=== PATIENT | female | born 1960 | race Caucasian/White ===

== ENCOUNTER → 2016-07-14 | Outpatient (CLI) | payer MEDICARE, OTHER ==
--- NOTE | 2016-07-14 11:51 | US ---
EXAMINATION TYPE: US thyroid st tissue head/neck DATE OF EXAM: 07/14/2016 10:42 AM COMPARISON: Thyroid ultrasound January 06, 2016 CLINICAL HISTORY: E04.2 Goiter. Follow up exam GLAND SIZE: Right Lobe: 4.3 x 1.4 x 1.2 cm Overall Parenchyma: homogenous Left Lobe: 4.6 x 1.2 x 1.4 cm Overall Parenchyma: heterogeneous Isthmus Thickness: 0.5 cm NODULES RIGHT: # of nodules measured on right: 0 LEFT: # of nodules measured on left: 3 1. 1.1 X 0.9 x 0.7 cm hypoechoic mixed nodule at the mid pole with irregular margins. This nodule is wider than tall and shows no intranodular vascularity. Prior size: 0.8 x 0.8 x 0.6 cm 2. 0.9 X 0.7 x 0.6 cm hyperechoic solid nodule at the lower pole with well-defined margins. This no dule is wider than tall and shows no intranodular vascularity. Prior size: 1.1 x 1.1 x 0.5 cm 3. 0.4 X 0.3 x 0.3 cm hypoechoic solid nodule at the upper pole with poorly defined margins. This n odule is wider than tall and shows no intranodular vascularity. Prior size: 0.5 x 0.5 x 0.5 cm ISTHMUS: # of nodules measured in the isthmus: 0 Bilateral neck scanned, no evidence of lymphadenopathy. Thyroid scan remains normal in size with small nodules in left thyroid lobe grossly stable in size an d appearance versus prior exam . No worrisome new solid or cystic nodules are seen. IMPRESSION: Thyroid gland remains normal in size with stable left-sided nodules, no new greater than 1 cm solid o r cystic nodules are evident.
== END | disposition home or self-care (01) ==
LOC: RADUSWWP 10:26
PROVIDERS: ATTEND Family Medicine
DX: E04.2 Nontoxic multinodular goiter (principal)
CPT/HCPCS: 76536

== ENCOUNTER → 2016-08-28 | Outpatient (CLI) | payer MEDICARE, OTHER ==
--- NOTE | 2016-09-01 13:29 | MM ---
Reason for exam: screening (asymptomatic). Last mammogram was performed 1 year ago. History: Patient is postmenopausal. Took hormonal contraceptives for 5 years beginning at age 15. Physical Findings: A clinical breast exam by your physician is recommended on an annual basis and results should be correlated with mammographic findings. MG 3D Screening Mammo W/Cad Bilateral CC and MLO view(s) were taken. Prior study comparison: August 14, 2015, bilateral MG screening mammo w CAD. May 22, 2013, bilateral digital screening mammo w/CAD. May 23, 2012, bilateral digital screening mammo w/CAD. There are scattered fibroglandular densities. There is chronic nodularity in the left breast. There is no discrete abnormality. ASSESSMENT: Negative, BI-RAD 1 RECOMMENDATION: Routine screening mammogram of both breasts in 1 year. Manage patient on a clinical basis with regard to left breast pain.
== END | disposition home or self-care (01) ==
LOC: RADMAMWWP 09:11
PROVIDERS: ATTEND Family Medicine
DX: Z12.31 Encounter for screening mammogram for malignant neoplasm of breast (principal)
CPT/HCPCS: 77063; G0202

== ENCOUNTER → 2016-10-14 | Outpatient (CLI) | payer MEDICARE ==
[2016-10-14 19:46] LABS: Appearance,CSF Clear
[2016-10-16 12:42] LABS: Immunoglobulin G 805 mg/dL (700 - 1600)
== END | disposition home or self-care (01) ==
LOC: LABWHC1 08:59
PROVIDERS: ATTEND Psychiatry & Neurology Pain Medicine
DX: R90.82 White matter disease, unspecified (principal)
CPT/HCPCS: 36415; 82040; 82042; 82784; 83873; 83916; 84157; 87476; 88108; 89050

== ENCOUNTER → 2016-12-01 | Outpatient (CLI) | payer MEDICARE ==
--- NOTE | 2016-12-02 07:17 | NM ---
EXAMINATION TYPE: NM parathyroid w/spect DATE OF EXAM: 12/01/2016 COMPARISON: Thyroid ultrasound dated 07/14/2016. HISTORY: Abnormal labs TECHNIQUE: Following administration of 27.1 mCi Tc99m Sestamibi. Anterior projection images of the neck and ches t were obtained 10 minutes and 3 hours post injection. SPECT images of the neck and chest were obtai shasha and reconstructed in three axes. FINDINGS: Thyroid tracer washout: Delayed images demonstrate near-complete tracer washout from the thyroid. Parathyroid uptake: None. The two-hour delayed images do not demonstrate any focal abnormal persisten t uptake in the region of the parathyroid glands to suggest parathyroid adenoma. Normal uptake: There is physiological tracer uptake in the myocardium, liver, salivary glands, and th yroid gland. IMPRESSION: Normal parathyroid imaging study. No evidence for abnormal uptake to suggest mediastinal parathyroid adenoma.
== END ==
LOC: RADNMMAIN 11:27
PROVIDERS: ATTEND Family Medicine
DX: R89.9 Unspecified abnormal finding in specimens from other organs, systems and tissues (principal)
CPT/HCPCS: 78071; A9500

== ENCOUNTER → 2016-12-10 | Outpatient (CLI) | payer MEDICARE ==
--- NOTE | 2016-12-10 09:59 | US ---
EXAMINATION TYPE: US thyroid st tissue head/neck DATE OF EXAM: 12/10/2016 COMPARISON: 07/14/2016 CLINICAL HISTORY: E04.2 Goiter/head/neck. Follow up thyroid nodules GLAND SIZE: Right Lobe: 4.7 x 1.1 x 1.9 cm Overall Parenchyma: homogenous Left Lobe: 4.5 x 1.2 x 1.8 cm Overall Parenchyma: heterogeneous Isthmus Thickness: 0.3 cm NODULES RIGHT: # of nodules measured on right: 0 LEFT: # of nodules measured on left: 3 1. 1.0 X 0.7 x 0.8 cm hypoechoic mixed nodule at the mid pole with irregular margins; . This nodul e is wider than tall and shows intranodular vascularity. Prior size: 1.1 x 0.9 x 0.7 cm 2. 1.1 X 0.7 x 0.9 cm hyperechoic solid nodule at the lower pole with well-defined margins; . This nodule is wider than tall and shows no intranodular vascularity. Prior size: 0.9 x 0.7 x 0.6 cm 3. 0.4 X 0.3 x 0.4 cm hypoechoic solid nodule at the upper pole with poorly defined margins; . This nodule is wider than tall and shows no intranodular vascularity. Prior size: 0.4 x 0.3 x 0.3 cm ISTHMUS: # of nodules measured in the isthmus: 0 Bilateral neck scanned, no evidence of lymphadenopathy. Left thyroid nodules noted with little change from prior exam IMPRESSION: Bilateral nonspecific thyroid nodularity. The need to biopsy should be made on a clinical basis.
== END | disposition home or self-care (01) ==
LOC: RADUSWWP 08:24
PROVIDERS: ATTEND Family Medicine
DX: E04.2 Nontoxic multinodular goiter (principal)
CPT/HCPCS: 76536

== ENCOUNTER → 2017-07-08 | Outpatient (CLI) | payer MEDICARE ==
--- NOTE | 2017-07-08 11:31 | US ---
EXAMINATION TYPE: US thyroid st tissue head/neck DATE OF EXAM: 07/08/2017 COMPARISON: NONE CLINICAL HISTORY: 56-year-old female E04.2 Nontoxic multinodular goiter. Follow up thyroid nodules Technique: Multiple sonographic images of the thyroid gland are obtained. FINDINGS: GLAND SIZE: Right Lobe: 5.0 x 1.3 x 2.1 cm Overall Parenchyma: homogenous Left Lobe: 4.8 x 1.1 x 1.8 cm Overall Parenchyma: heterogeneous Isthmus Thickness: 0.2 cm NODULES RIGHT: # of nodules measured on right: 0 LEFT: # of nodules measured on left: 3 1. 0.9 X 0.5 x 0.8 cm mixed nodule at the mid pole. This nodule is wider than tall and shows intran odular vascularity. Prior size: 1.0 x 0.7 x 0.8 cm 2. 1.4 X 0.7 x 1.2 cm hyperechoic solid nodule at the lower pole with well-defined margins; . This nodule is wider than tall and shows intranodular vascularity. Increased in size. Prior size: 1.1 x 0.7 x 0.9 cm 3. 0.4 X 0.2 x 0.4 cm tiny solid nodule at the upper pole. This nodule is wider than tall and shows intranodular vascularity. Prior size: 0.4 x 0.3 x 0.4 cm ISTHMUS: # of nodules measured in the isthmus: Bilateral neck scanned, no evidence of lymphadenopathy. Process Eng notes: 3 nodules measured left thyroid lobe as on prior exam IMPRESSION: 1. Redemonstrated 3 nodules on the left. The largest measures 1.4 x 1.2 cm and is solid at the lower pole. This has increased in size from 12/10/2016, previously measuring 1.1 x 0.9 cm. Follow-up versus F NA. 2. The other 2 nodules are stable measuring up to 9 mm.
== END | disposition home or self-care (01) ==
LOC: RADUSWWP 08:21
PROVIDERS: ATTEND Family Medicine
DX: E04.2 Nontoxic multinodular goiter (principal)
CPT/HCPCS: 76536

== ENCOUNTER → 2018-03-02 | Outpatient (CLI) | payer MEDICARE ==
--- NOTE | 2018-03-02 09:21 | US ---
EXAMINATION TYPE: US thyroid st tissue head/neck DATE OF EXAM: 03/02/2018 COMPARISON: US 07/08/2017 CLINICAL HISTORY: E04.1 Thyroid Nodule. F/U nodules GLAND SIZE: Right Lobe: 5.0 x 1.3 x 1.5 cm Overall Parenchyma: homogenous Left Lobe: 4.6 x 1.2 x 1.3 cm Overall Parenchyma: heterogeneous Isthmus Thickness: 0.3 cm NODULES RIGHT: # of nodules measured on right: 0 LEFT: # of nodules measured on left: 3 1. 0.9 X 0.6 x 0.8 cm hypoechoic mixed nodule at the mid pole with well-defined margins; This nodu le is wider than tall and shows intranodular vascularity. Prior size: 0.9 x 0.5 x 0.8 cm 2. 1.2 X 0.7 x 1.2 cm echogenic solid nodule at the lower pole with well-defined margins; This nodu le is wider than tall and shows intranodular vascularity. Prior size: 1.4 x 0.7 x 1.2 cm 3. 0.5 X 0.4 x 0.4 cm hypoechoic solid nodule at the upper pole with well-defined margins; This nod ule is wider than tall and shows intranodular vascularity. Prior size: 0.4 x 0.2 x 0.4 cm ISTHMUS: # of nodules measured in the isthmus: 0 Bilateral neck scanned, no evidence of lymphadenopathy. Stable nodules on left. IMPRESSION: Nonspecific thyroid nodularity.
--- NOTE | 2018-03-03 14:21 | MM ---
Reason for exam: screening (asymptomatic). Last mammogram was performed 1 year and 6 months ago. History: Patient is postmenopausal. Took hormonal contraceptives for 5 years beginning at age 15. Physical Findings: A clinical breast exam by your physician is recommended on an annual basis and results should be correlated with mammographic findings. MG 3D Screening Mammo W/Cad Bilateral CC and MLO view(s) were taken. Prior study comparison: August 28, 2016, bilateral MG 3d screening mammo w/cad. August 14, 2015, bilateral MG screening mammo w CAD. The breast tissue is heterogeneously dense. This may lower the sensitivity of mammography. Finding: There are typically benign round calcifications in the inner quadrant, posterior position of the left breast. There is a chronic nodularity in the left breast. There is no discrete abnormality. ASSESSMENT: Benign, BI-RAD 2 RECOMMENDATION: Routine screening mammogram of both breasts in 1 year.
== END | disposition home or self-care (01) ==
LOC: RADUSWWP 08:52
PROVIDERS: ATTEND Family Medicine
DX: Z12.31 Encounter for screening mammogram for malignant neoplasm of breast (principal); E04.2 Nontoxic multinodular goiter
CPT/HCPCS: 76536; 77063; 77067

== ENCOUNTER → 2019-10-30 | Outpatient (CLI) | payer MEDICARE ==
--- NOTE | 2019-10-30 15:14 | US ---
EXAMINATION TYPE: US thyroid st tissue head/neck DATE OF EXAM: 10/30/2019 COMPARISON: Last US 03/02 20 CLINICAL HISTORY: E04.2 Goiter. GLAND SIZE: Right Lobe: 4.8 x 1.3 x 1.3 cm Overall Parenchyma: heterogenous Left Lobe: 4.8 x 1.3 x 1.2 cm Overall Parenchyma: heterogeneous Isthmus Thickness: 0.3 cm NODULES RIGHT: # of nodules measured on right: 0 LEFT: # of nodules measured on left: 3 1. 0.9 X 0.5 x 0.4 cm hypoechoic solid nodule at the mid pole with well-defined margins. This nodu le is wider than tall and shows no intranodular vascularity. Prior size: 0.9 x 0.6 x 0.8 cm 2. 1.7 X 0.9 x 0.7 cm echogenic solid nodule at the lower pole with well-defined margin. This nodul e is wider than tall and shows no intranodular vascularity. Prior size: 1.2 x 0.7 x 1.2 cm 3. 0.4 X 0.4 x 0.3 cm hypoechoic solid nodule at the upper pole with well-defined margins This nodul e is wider than tall and shows no intranodular vascularity. Prior size: 0.5 x 0.4 x 0.4 cm ISTHMUS: # of nodules measured in the isthmus: 0 Bilateral neck scanned, no evidence of lymphadenopathy. IMPRESSION: 1. Left thyroid lobe nodule with additional subcentimeter nodules.
--- NOTE | 2019-10-31 08:15 | US ---
LOWER EXTREMITY VENOUS INSUFFICIENCY CLINICAL HISTORY: I87.2 Venous insufficiency (chronic) (peripheral). SIDE PERFORMED: Bilateral 1) Color flow is present and patency is documented in the following vessels. No DVT or SVT is noted . EIV Common Femoral Vein Deep Femoral Vein Femoral Vein Popliteal Vein Proximal Calf Veins Greater Saph Vein Upper Small Saph Vein 2) There is venous reflux noted at the following venous levels: No 3) Incompetent perforators are noted at these levels: No No venous insufficiency noted IMPRESSION: No evidence for venous insufficiency or DVT.
== END | disposition home or self-care (01) ==
LOC: RADUSWWP 13:28
PROVIDERS: ATTEND Family Medicine
DX: E04.2 Nontoxic multinodular goiter (principal); I87.2 Venous insufficiency (chronic) (peripheral)
CPT/HCPCS: 76536; 93970

== ENCOUNTER → 2020-04-24 | Outpatient (CLI) | payer MEDICARE ==
--- NOTE | 2020-04-24 15:35 | CTL ---
EXAMINATION TYPE: CT Low Dose Lung DATE OF EXAM ORDERED: 04/24/2020 HISTORY: Long-term tobacco use. Lung cancer screening CT DLP: [address] CTDI: 6.62 mGy Automated exposure control for dose reduction was used. SCREENING VISIT: Initial study COMPARISON: None TECHNIQUE: Low dose computed tomography scan was performed through the chest at 1 mm thick sections a nd reconstructed images in the coronal plane at [address] DIAGNOSTIC QUALITY: Limited, but interpretable FINDINGS: LUNG NODULES: Present, detailed below: There is 6 x 4 mm right lower lobe nodule axial image 170. There is 4 x 3 mm left lower lobe nodule image 203. LUNGS: COPD: Severity: Mild Fibrosis: Severity: Mild linear scarring in the lingula and right middle lobe near diaphragm. Lymph nodes: No suspicious greater than 1 cm Other findings: None. BILATERAL PLEURAL SPACE: Effusion: None Calcification: None Thickening: None Pneumothorax: None HEART: Heart Size: Upper limits of normal Coronary calcification: Moderate to severe three-vessel Pericardial effusion: Trace OTHER FINDINGS: Upper abdomen: Limited evaluation. Cholecystectomy clips noted on localizer. Bony thorax: None. Supraclavicular region: Scoliotic curvature with moderate multilevel spurring Other: None IMPRESSION: Small nodules up to 6 x 4 mm. No suspicious greater than [address] LUNG RAD AND CT CHEST RECOMMENDATION: Lung-Rad 2 Benign Appearance or Behavior: Continue annual sc reening with LDCT in 12 months. S Modifier (other clinically significant findings): S Moderate to severe three-vessel coronary artery calcification, correlate clinically for additional ca rdiac risk factors.
--- NOTE | 2020-04-24 15:57 | US ---
EXAMINATION TYPE: US thyroid st tissue head/neck DATE OF EXAM: 04/24/2020 COMPARISON: 10/30/2019 CLINICAL HISTORY: E04.2 NONTOXIC MULTINODULAR GOITER. Follow up thyroid nodules GLAND SIZE: Right Lobe: 4.8 x 1.2 x 1.9 Overall Parenchyma: homogenous Left Lobe: 4.9 x 1.1 x 1.5 cm Overall Parenchyma: homogeneous Isthmus Thickness: 0.2 cm NODULES RIGHT: # of nodules measured on right: 0 LEFT: # of nodules measured on left: 2 1. 0.8 X 0.5 x 0.8 cm mixed, hypoechoic nodule, which is wider than tall, with smooth margins, with out echogenic foci. Prior size: 0.9 x 0.4 x 0.5 cm 2. 1.5 X 0.8 x 1.4 cm solid, hyperechoic nodule, which is wider than tall, with smooth margins, wit hout echogenic foci. Prior size: 1.7 x 0.7 x 0.9 cm ISTHMUS: # of nodules measured in the isthmus: 0 Bilateral neck scanned, no evidence of lymphadenopathy. IMPRESSION: 1. Mildly suspicious nodule left lobe thyroid. Recommendation is for follow-up in one year 2017 ACR TI-RADS LEVEL: TR-RADS 3 - Mildly Suspicious: Follow if > 1.5 cm, FNA if > 2.5 cm *Highest TI-RADS level nodule reported
== END | disposition home or self-care (01) ==
LOC: RADCTMAIN 14:41
PROVIDERS: ATTEND Family Medicine
DX: Z12.2 Encounter for screening for malignant neoplasm of respiratory organs (principal); R91.8 Other nonspecific abnormal finding of lung field; F17.210 Nicotine dependence, cigarettes, uncomplicated; E04.2 Nontoxic multinodular goiter
CPT/HCPCS: 71271; 76536

== ENCOUNTER → 2020-06-11 | Outpatient (CLI) | payer MEDICARE ==
[2020-06-11 14:52] LABS: HCT 38.8 % (34.0-46.0); HGB 13.2 gm/dL (11.4-16.0); MCH 32.2 pg (25.0-35.0); MCHC 34.2 g/dL (31.0-37.0); MCV 94.3 fL (80.0-100.0); Mean Platelet Volume 7.5; Platelet Count 219 k/uL (150-450); RBC 4.11 m/uL (3.80-5.40); RDW 12.2 % (11.5-15.5); WBC 10.5 k/uL (3.8-10.6)
[2020-06-11 15:09] LABS: Potassium 4.1 mmol/L (3.5-5.1)
== END | disposition home or self-care (01) ==
LOC: LABPAT 14:00
PROVIDERS: ATTEND Internal Medicine
DX: Z01.812 Encounter for preprocedural laboratory examination (principal); R07.9 Chest pain, unspecified
CPT/HCPCS: 36415; 80051; 82565; 84520; 85027

== ENCOUNTER 2020-06-14 10:30 | Day surgery (SDC) | payer MEDICARE ==
[2020-06-12 14:08] VITALS: BMI 45.2
[~2020-06-14 10:30] MED LIST: ALPRAZolam 0.25 MG TAB PO PRN; ALPRAZolam 0.5 MG TAB PO PRN; ASPIRIN 325 MG TAB PO STA; ATORVASTATIN 80 MG TAB PO STA; NITROGLYCERIN SL TABS 0.4 MG TAB SUBLINGUAL PRN; SODIUM CHLORIDE 0.9% 1,000 ML in EMPTY BAG 1 BAG IV ONE
[2020-06-14 11:10] VITALS: RESP 18; TEMP 97.8
[2020-06-14 11:12] LABS: Glucose,Whole Blood 247 mg/dL (75-99)
[2020-06-14] MEDS ORDERED: VERAPAMIL 2.5 MG/ML 2 ML AMP ONE (11:55)
[2020-06-14] MEDS ORDERED: LIDOCAINE 1% INJ 10MG/ML (20 ML MDV) ONE (11:55)
[2020-06-14] MEDS ORDERED: IV FLUID CONTINUATION 1,000 ML IV ONE (12:00)
[2020-06-14] MEDS ORDERED: fentaNYL (PF) 50 MCG/ML 2 ML AMP ONE (12:09)
[2020-06-14] MEDS ORDERED: MIDAZOLAM 2 MG/2 ML VIAL IV ONE (12:14)
[2020-06-14] MEDS ORDERED: LIDOCAINE 1% INJ 10MG/ML (20 ML MDV) SQ ONE (12:14)
[2020-06-14] MEDS ORDERED: fentaNYL (PF) 50 MCG/ML 2 ML AMP IV ONE (12:14)
[2020-06-14] MEDS ORDERED: HEPARIN SODIUM 1,000 UN/ML (10ML VL) ONE (12:15)
[2020-06-14] MEDS ORDERED: VERAPAMIL SYRINGE (5 MG/10 ML) INTRAARTER ONE (12:16)
[2020-06-14] MEDS ORDERED: HEPARIN SODIUM 1,000 UN/ML (10ML VL) IV ONE ×2 (12:18→12:30)
[2020-06-14] MEDS ORDERED: INSULIN ASPART (NovoLOG) 100 UNIT/ML VIAL SQ SCH (12:30)
[2020-06-14] MEDS ORDERED: IOPAMIDOL-370 125ML BTL INJ ONE (12:39)
[2020-06-14] MEDS ORDERED: RX INFO: IV CONTRAST WAS GIVEN 1 EACH MISC MISCELLANE PRN (13:17)
--- NOTE | 2020-06-14 13:17 | P.CARDCATH ---
Description of Procedure: PROCEDURES PERFORMED: Left heart catheterization, bilateral coronary angiography, iFR circumflex INDICATION: Chest pain concerning for unstable angina, dyspnea on exertion, prior history of CAD HISTORY: Patient is a pleasant 59-year-old female with history of hypertension, hyperlipidemia, diabetes mellitus type 2, coronary artery disease with prior stenting of her circumflex who presents secondary to worsening chest pain and shortness breath with exertion which feels somewhat similar to her prior angina with her most recent stent. Her last circumflex stent was placed in 2012. Patient was offered heart catheterization versus stress testing and opted for heart catheterization. CONSENT:I have discussed the risks, benefits and alternative therapies for the above-mentioned procedure and for both sedation/analgesia as well as necessary blood product administration, if indicated, as they pertain to this patient. The patient has indicated understanding and acceptance of the risks and procedures discussed. PROCEDURE: After the risks, benefits and alternatives of the above mentioned procedure explained in detail with the patient, informed consent was obtained. Patient was taken to the catheterization lab and prepped and draped in usual fashion. 1% lidocaine was used to anesthetize the right radial artery. A 6-Czech sheath was placed in the right radial artery using modified Seldinger technique. Left coronary angiography was performed with a 5-Czech JL 3.5 catheter and right coronary angiography was performed with a 5-Czech JR5 catheter in various views. A 5-Czech FR5 catheter was inserted into the left ventricle and pressure measurements were obtained. The decision was made to iFR the circumflex. The left main was engaged with a CLS 3.5 guide catheter. A 0.014 pressure wire was normalized in the left main then advanced into the mid to distal circumflex, 1-2 cm beyond the lesion. iFR was performed and normal at 0.92. The wire and catheter were then removed. The right radial sheath was removed and a TR band was placed with hemostasis achieved. The patient tolerated the procedure well. Patient was transported back to the post catheterization holding area in stable condition. Conscious Sedation: Patient was monitored under the direct supervision of vision of myself for conscious sedation using Versed and fentanyl for a total duration of 28 minutes HEMODYNAMICS: Ao 112/67 LV: 114/2, LVEDP 11 SELECTIVE CORONARY ARTERIOGRAPHY: LEFT MAIN: The left main is a large caliber, short vessel which bifurcates into the LAD and circumflex. There is no significant stenosis. LEFT ANTERIOR DESCENDING CORONARY ARTERY: LAD is a large caliber vessel which wraps around to the apex. There is proximal calcified 30-40% stenosis. There is an ostial 40% diagonal 1 stenosis. Otherwise there are mild luminal irregularities. LEFT CIRCUMFLEX CORONARY ARTERY: Left circumflex is a moderate caliber vessel. There is a mid circumflex stent which is widely patent. There is a moderate caliber OM1 without significant stenosis. The mid to distal circumflex has a 50-60% stenosis with iFR normal at 0.92. RIGHT CORONARY ARTERY: The right coronary artery is a moderate caliber vessel which gives off a PDA and PLV branch and is the dominant vessel. There is diffuse mild 30-40% stenosis. FINAL IMPRESSION: 1. Mild to moderate CAD as described above with worst being 50-60% distal circumflex with iFR normal at 0.92. 2. Normal left sided filling pressures PLAN: 1. Aggressive risk factor modification per most recent ACC/AHA guidelines. 2. Follow-up in the office in 1-2 weeks. 3. Consider workup of other reasons for chest pain and SOB with mild to moderate CAD and normal iFR of circumflex.
[2020-06-14 16:23] VITALS: BP 136/71; PULSE 70
== END 2020-06-14 16:48 | disposition home or self-care (01) ==
LOC: CATHCVL 10:30
PROVIDERS: ATTEND Internal Medicine
DX: I25.110 Atherosclerotic heart disease of native coronary artery with unstable angina pectoris (principal); R07.89 Other chest pain; R06.09 Other forms of dyspnea; R06.02 Shortness of breath; R60.0 Localized edema; R00.2 Palpitations; R07.2 Precordial pain; E11.9 Type 2 diabetes mellitus without complications; I11.0 Hypertensive heart disease with heart failure; I50.9 Heart failure, unspecified; G25.81 Restless legs syndrome; F32.9 Major depressive disorder, single episode, unspecified; K21.9 Gastro-esophageal reflux disease without esophagitis; M79.7 Fibromyalgia; I70.92 Chronic total occlusion of artery of the extremities; I70.201 Unspecified atherosclerosis of native arteries of extremities, right leg; E66.01 Morbid (severe) obesity due to excess calories; E78.2 Mixed hyperlipidemia; Z95.5 Presence of coronary angioplasty implant and graft; Z72.0 Tobacco use; Z79.84 Long term (current) use of oral hypoglycemic drugs; Z79.899 Other long term (current) drug therapy; Z79.82 Long term (current) use of aspirin; Z68.41 Body mass index [BMI] 40.0-44.9, adult; Z82.49 Family history of ischemic heart disease and other diseases of the circulatory system
CPT/HCPCS: 93571; 93458; C1887 ×2; C1769; C1894; J2250; J2001; J3010; J1644; Q9967

== ENCOUNTER → 2023-01-07 | Outpatient (CLI) | payer MEDICARE ==
--- NOTE | 2023-01-07 18:38 | US ---
EXAMINATION TYPE: US thyroid st tissue head/neck DATE OF EXAM: 01/07/2023 COMPARISON: 04/24/2020 CLINICAL INDICATION: Female, 62 years old with history of E04.2 GOITER; Thyroid nodule GLAND SIZE: Right Lobe: 4.8 x 1.1 x 1.7 cm Overall Parenchyma: homogenous Left Lobe: 5.0 x 1.1 x 1.7 cm Overall Parenchyma: homogeneous Isthmus Thickness: .3 cm NODULES RIGHT: # of nodules measured on right: 0 LEFT: # of nodules measured on left: 2 1. 1.6 X .8 x 1.6 cm, lower medial, solid or almost completely solid, hyperechoic TR 3 nodule, whic h is wider than tall, with smooth margins, without echogenic foci. Prior size: 1.5 x .7 x 1.4 cm 2. 1.0 X .6 x .8 cm, mid , solid or almost completely solid, hypoechoic TR 4 nodule, which is wide r than tall, with smooth margins, without echogenic foci. Prior size: .8 x .5 x .8 cm ISTHMUS: # of nodules measured in the isthmus: 0 Bilateral neck scanned, no evidence of lymphadenopathy. IMPRESSION: 1. A couple solid nodules in the right lobe redemonstrated. The largest is a 1.6 cm TR3 nodule which has minimally increased from 1.5 cm. Continue to follow and FNA if it reaches 2.5 cm. 2. The second is a 1.0 cm TR4 nodule also slightly larger from 8 mm previously. Continue to follow, F NA if it reaches 1.5 cm.
== END | disposition home or self-care (01) ==
LOC: RADUSWWP 12:12
PROVIDERS: ATTEND Family Medicine
DX: E04.2 Nontoxic multinodular goiter (principal)
CPT/HCPCS: 76536

== ENCOUNTER 2023-05-31 21:52 | Emergency (ER) | payer MEDICARE ==
--- NOTE | 2023-05-31 22:26 | CT ---
EXAMINATION TYPE: CT abdomen pelvis wo con DATE OF EXAM: 05/31/2023 HISTORY: left flank pain onset this evening [address] DLP: 1257.4 mGycm. Automated Exposure Control for Dose Reduction was Utilized. TECHNIQUE: CT scan of the abdomen and pelvis is performed without oral or IV contrast. COMPARISON: Prior CT abdomen November 24, 2021 FINDINGS: Within the limitations of a non-contrast study, the following observations are made. LUNG BASES: Mild linear scarring and/or atelectasis in the lingula. LIVER/GB: Cholecystectomy clips are redemonstrated. PANCREAS: No significant abnormality is seen. SPLEEN: No significant abnormality is seen. ADRENALS:. There is 3.2 x 1.8 cm low dense left adrenal mass with Hounsfield units averaging near 0 c onsistent with benign lipid rich adenoma. KIDNEYS: No renal calculi seen bilaterally. No right-sided hydronephrosis. Fullness of left renal pel vis . No hydroureter or obstructing ureteral calculus. No intraluminal calculus in the bladder. Asymm etric mild/moderate left-sided perinephric fluid. BOWEL: No of abnormal small or large bowel dilatation. GENITAL ORGANS: Uterus is surgically absent. Scattered tiny bilateral pelvic phleboliths. LYMPH NODES: No greater than 1cm abdominal or pelvic lymph nodes are appreciated. OSSEOUS STRUCTURES: Multilevel vacuum disc phenomenon and disc space narrowing in the thoracic spine. Vacuum disc phenomenon at L4-L5 and L5-S1 levels. OTHER: Numerous coils from hernia repair surgery in the anterior wall of the pelvis are present. IMPRESSION: Mild left-sided hydronephrosis without obstructing urinary calculus. Mild to moderate lef t-sided perinephric fat stranding. Consider recently passed calculus or even possibly acute pyeloneph ritis as possible etiologies.
--- NOTE | 2023-05-31 22:31 | ED ---
General Adult HPI - General Chief complaint: Back Pain/Injury Stated complaint: Back Pain Time Seen by Provider: 05/31/23 22:01 Source: patient, EMS, RN notes reviewed, old records reviewed Mode of arrival: EMS Limitations: no limitations - History of Present Illness Initial comments: 62-year-old female presenting with sudden onset left flank pain, associated nausea. No preceding symptoms. Pain was severe, treated by paramedics en route. Currently resolved. Patient denies dysuria or hematuria. Denies fever. Denies similar symptoms in the past. - Related Data Home Medications Medication Instructions Recorded Confirmed Aspirin 325 mg PO DAILY 05/02/14 06/14/20 Atorvastatin [Lipitor] 40 mg PO HS 05/02/14 06/14/20 Furosemide [Lasix] 20 mg PO SUTUTHSA 05/02/14 06/14/20 Omeprazole [PriLOSEC] 20 mg PO AC-BRKFST 05/02/14 06/14/20 Sertraline HCl [Zoloft] 200 mg PO DAILY 05/02/14 06/14/20 atenoloL [Tenormin] 50 mg PO DAILY 05/02/14 06/14/20 glipiZIDE XL [Glucotrol XL] 10 mg PO DAILY 05/02/14 06/14/20 metFORMIN HCL [Glucophage] 1,000 mg PO BID 05/02/14 06/14/20 Furosemide [Lasix] 40 mg PO MOWEFR 06/12/20 06/14/20 rOPINIRole HCL [Requip] 4 mg PO HS 06/12/20 06/14/20 Previous Rx's Medication Instructions Recorded Cephalexin [Keflex] 500 mg PO Q12HR #20 cap 06/01/23 Allergies Allergy/AdvReac Type Severity Reaction Status Date / Time latex Allergy "skin Verified 06/14/20 10:50 looked like it melted" ISIDRA Inhibitors AdvReac Cough Verified 06/14/20 10:50 losartan potassium AdvReac Cough Verified 06/14/20 10:50 [From Arlyn] Review of Systems ROS Statement: Those systems with pertinent positive or pertinent negative responses have been documented in the HPI. ROS Other: All systems not noted in ROS Statement are negative. Past Medical History Past Medical History: Diabetes Mellitus, Hypertension, Myocardial Infarction (OH), Osteoarthritis (OA), Pneumonia, Thyroid Disorder Additional Past Medical History / Comment(s): tinnitus Last Myocardial Infarction Date:: feb 2013 History of Any Multi-Drug Resistant Organisms: None Reported Past Surgical History: Cholecystectomy, Heart Catheterization With Stent, Hernia Repair, Hysterectomy, Tubal Ligation Additional Past Surgical History / Comment(s): cardiac stent feb 2013, bilateral carpal tunnel, rt elbow surgery Past Anesthesia/Blood Transfusion Reactions: No Reported Reaction, Motion Sickness Date of Last Stent Placement:: feb 2013 Past Psychological History: Depression Smoking Status: Current every day smoker Past Alcohol Use History: None Reported Past Drug Use History: None Reported - Past Family History Daughter(s) Family Medical History: Cancer Additional Family Medical History / Comment(s): cervical Mother Family Medical History: No Reported History General Exam Limitations: no limitations General appearance: alert, in no apparent distress Head exam: Present: atraumatic, normocephalic Eye exam: Present: normal appearance, PERRL ENT exam: Present: normal exam Neck exam: Present: normal inspection. Absent: tenderness, meningismus Respiratory exam: Present: normal lung sounds bilaterally. Absent: respiratory distress, wheezes, rales Cardiovascular Exam: Present: regular rate, normal rhythm GI/Abdominal exam: Present: soft. Absent: distended, tenderness, guarding Extremities exam: Present: normal inspection, normal capillary refill Neurological exam: Present: alert, oriented X3, CN II-XII intact. Absent: motor sensory deficit Psychiatric exam: Present: normal affect, normal mood Skin exam: Present: warm, dry, intact, erythema. Absent: cyanosis, diaphoretic Course Vital Signs 05/31/23 06/01/23 06/01/23 21:53 00:02 01:33 Temperature 97.8 F Pulse Rate 89 93 88 Respiratory 18 16 16 Rate Blood Pressure 182/87 133/58 142/81 O2 Sat by Pulse 97 96 95 Oximetry Medical Decision Making - Medical Decision Making Was pt. sent in by a medical professional or institution (, PA, COAL HANDLER, urgent care, hospital, or prison...) When possible be specific @ -No Did you speak to anyone other than the patient for history (EMS, parent, family, police, friend...)? What history was obtained from this source @ -Paramedics Did you review nursing and triage notes (agree or disagree)? Why? @ -I reviewed and agree with nursing and triage notes Were old charts reviewed (outside hosp., previous admission, EMS record, old EKG, old radiological studies, urgent care reports/EKG's, prison records)? Report findings @ -No old charts were reviewed Differential Diagnosis (chest pain, altered mental status, abdominal pain women, abdominal pain men, vaginal bleeding, weakness, fever, dyspnea, syncope, headache, dizziness, GI bleed, back pain, seizure, CVA, palpatations, mental health, musculoskeletal)? @ -Differential Abdominal Pain Women: Appendicitis, Cholecystitis, diverticulosis, ischemic bowel, pancreatitis, hepatitis, UTI, gastroenteritis, AAA, incarcerated hernia, bowel obstruction, constipation, inflammatory bowel, hepatitis, peptic ulcer disease, splenic infarction, perforated viscus, vulvitis, ovarian torsion, PID, kidney stone, placenta abruption, this is not meant to be an all-inclusive list EKG interpreted by me (3pts min.). @ -As above X-rays interpreted by me (1pt min.). @ -None done CT interpreted by me (1pt min.). @CT showing perinephric fat stranding on the left consistent with pyelonephritis versus recently passed stone. U/S interpreted by me (1pt. min.). @ -None done What testing was considered but not performed or refused? (CT, X-rays, U/S, labs)? Why? @ -None What meds were considered but not given or refused? Why? @ -None Did you discuss the management of the patient with other professionals (professionals i.e. , PA, COAL HANDLER, lab, RT, psych nurse, high school social studies teacher, lunch wagon operator, teacher, conservation enforcement officer, case work aide)? Give summary @ -No Was smoking cessation discussed for >3mins.? @ -No Was critical care preformed (if so, how long)? @ -No Were there social determinants of health that impacted care today? How? (Homelessness, low income, unemployed, alcoholism, drug addiction, transportation, low edu. Level, literacy, decrease access to med. care, prison, rehab)? @ -No Was there de-escalation of care discussed even if they declined (Discuss DNR or withdrawal of care, Hospice)? DNR status @ -No What co-morbidities impacted this encounter? (DM, HTN, Smoking, COPD, CAD, Cancer, CVA, ARF, Chemo, Hep., AIDS, mental health diagnosis, sleep apnea, morbid obesity)? @ -None Was patient admitted / discharged? Hospital course, mention meds given and route, prescriptions, significant lab abnormalities, going to OR and other pertinent info. @ -[h 62-year-old female with left flank pain, sudden onset, history suspicious for renal colic. Patient is well-appearing with stable vitals. No anterior abdominal pain. Urinalysis does show hematuria with rare bacteria. CT without evidence of obstructive uropathy but likely representing recently passed stone. Patient does not require any further pain medication while in the emergency department. Initial lactic acid 3.9 which is downtrending likely related to dehydration. Patient feeling significantly better. Prescribed antibiotics and will follow-up with primary care provider. Undiagnosed new problem with uncertain prognosis? @ -No Drug Therapy requiring intensive monitoring for toxicity (Heparin, Nitro, Insulin, Cardizem)? @ -No Were any procedures done? @ -No Diagnosis/symptom? @ -UTI, likely passed kidney stone Acute, or Chronic, or Acute on Chronic? @ -Acute Uncomplicated (without systemic symptoms) or Complicated (systemic symptoms)? @ -Default Side effects of treatment? @ -No Exacerbation, Progression, or Severe Exacerbation? @ -No Poses a threat to life or bodily function? How? (Chest pain, [place], [place], pneumonia, PE, COPD, DKA, ARF, appy, cholecystitis, CVA, Diverticulitis, Homicidal, Suicidal, threat to staff... and all critical care pts) @ -Low risk at this time - Lab Data Result diagrams: 05/31/23 23:30 05/31/23 23:30 Lab Results 05/31/23 05/31/23 05/31/23 Range/Units 23:30 23:30 23:30 WBC 13.1 H (3.8-10.6) k/uL RBC 4.06 (3.80-5.40) m/uL Hgb 12.6 (11.4-16.0) gm/dL Hct 37.7 (34.0-46.0) % MCV 92.8 (80.0-100.0) fL MCH 31.0 (25.0-35.0) pg MCHC 33.4 (31.0-37.0) g/dL RDW 12.7 (11.5-15.5) % Plt Count 187 (150-450) k/uL MPV 7.8 Neutrophils % 87 % Lymphocytes % 9 % Monocytes % 3 % Eosinophils % 1 % Basophils % 0 % Neutrophils # 11.4 H (1.3-7.7) k/uL Lymphocytes # 1.2 (1.0-4.8) k/uL Monocytes # 0.3 (0-1.0) k/uL Eosinophils # 0.1 (0-0.7) k/uL Basophils # 0.0 (0-0.2) k/uL PT 10.8 (10.0-12.5) sec INR 1.0 (<1.2) APTT 23.6 (22.0-30.0) sec Sodium 140 (137-145) mmol/L Potassium 3.9 (3.5-5.1) mmol/L Chloride 109 H (98-107) mmol/L Carbon Dioxide 20 L (22-30) mmol/L Anion Gap 11 mmol/L BUN 13 (7-17) mg/dL Creatinine 0.86 (0.52-1.04) mg/dL Est GFR (CKD-EPI)AfAm 83 (>60 ml/min/1.73 sqM) Est GFR (CKD-EPI)NonAf 72 (>60 ml/min/1.73 sqM) Glucose 282 H (74-99) mg/dL Plasma Lactic Acid Janes (0.7-2.0) mmol/L Calcium 9.5 (8.4-10.2) mg/dL Total Bilirubin 0.3 (0.2-1.3) mg/dL AST 22 (14-36) U/L ALT 24 (4-34) U/L Alkaline Phosphatase 119 (38-126) U/L Total Protein 6.2 L (6.3-8.2) g/dL Albumin 3.8 (3.5-5.0) g/dL Amylase 61 (30-110) U/L Lipase 572 H (23-300) U/L Urine Color Urine Appearance (Clear) Urine pH (5.0-8.0) Ur Specific [place] (1.001-1.035) Urine Protein (Negative) Urine Glucose (UA) (Negative) Urine Ketones (Negative) Urine Blood (Negative) Urine Nitrite (Negative) Urine Bilirubin (Negative) Urine Urobilinogen (<2.0) mg/dL Ur Leukocyte Esterase (Negative) Urine RBC (0-5) /hpf Urine WBC (0-5) /hpf Ur Squamous Epith Cells (0-4) /hpf Urine Bacteria (None) /hpf Urine Mucus (None) /hpf 05/31/23 06/01/23 06/01/23 Range/Units 23:30 00:00 01:30 WBC (3.8-10.6) k/uL RBC (3.80-5.40) m/uL Hgb (11.4-16.0) gm/dL Hct (34.0-46.0) % MCV (80.0-100.0) fL MCH (25.0-35.0) pg MCHC (31.0-37.0) g/dL RDW (11.5-15.5) % Plt Count (150-450) k/uL MPV Neutrophils % % Lymphocytes % % Monocytes % % Eosinophils % % Basophils % % Neutrophils # (1.3-7.7) k/uL Lymphocytes # (1.0-4.8) k/uL Monocytes # (0-1.0) k/uL Eosinophils # (0-0.7) k/uL Basophils # (0-0.2) k/uL PT (10.0-12.5) sec INR (<1.2) APTT (22.0-30.0) sec Sodium (137-145) mmol/L Potassium (3.5-5.1) mmol/L Chloride (98-107) mmol/L Carbon Dioxide (22-30) mmol/L Anion Gap mmol/L BUN (7-17) mg/dL Creatinine (0.52-1.04) mg/dL Est GFR (CKD-EPI)AfAm (>60 ml/min/1.73 sqM) Est GFR (CKD-EPI)NonAf (>60 ml/min/1.73 sqM) Glucose (74-99) mg/dL Plasma Lactic Acid Janes 3.9 H* 3.3 H* (0.7-2.0) mmol/L Calcium (8.4-10.2) mg/dL Total Bilirubin (0.2-1.3) mg/dL AST (14-36) U/L ALT (4-34) U/L Alkaline Phosphatase (38-126) U/L Total Protein (6.3-8.2) g/dL Albumin (3.5-5.0) g/dL Amylase (30-110) U/L Lipase (23-300) U/L Urine Color Light Yellow Urine Appearance Cloudy H (Clear) Urine pH 5.5 (5.0-8.0) Ur Specific [place] 1.017 (1.001-1.035) Urine Protein Trace H (Negative) Urine Glucose (UA) 1+ H (Negative) Urine Ketones Negative (Negative) Urine Blood Moderate H (Negative) Urine Nitrite Negative (Negative) Urine Bilirubin Negative (Negative) Urine Urobilinogen <2.0 (<2.0) mg/dL Ur Leukocyte Esterase Small H (Negative) Urine RBC 61 H (0-5) /hpf Urine WBC 8 H (0-5) /hpf Ur Squamous Epith Cells 1 (0-4) /hpf Urine Bacteria Rare H (None) /hpf Urine Mucus Rare H (None) /hpf Disposition Clinical Impression: Renal colic, UTI (urinary tract infection) Disposition: HOME SELF-CARE Condition: Fair Instructions (If sedation given, give patient instructions): Renal Colic (ED), Urinary Tract Infection in Women (ED) Prescriptions: Cephalexin [Keflex] 500 mg PO Q12HR #20 cap Is patient prescribed a controlled substance at d/c from ED?: No Referrals: Kendell Merino DO [Primary Care Provider] - 1-2 days Time of Disposition: 03:11
[2023-05-31 23:43] LABS: Basophils % (A) 0 %; Eosinophils # (A) 0.1 k/uL (0-0.7); Eosinophils % (A) 1 %; HCT 37.7 % (34.0-46.0); HGB 12.6 gm/dL (11.4-16.0); Lymphocytes # (A) 1.2 k/uL (1.0-4.8); Lymphocytes % (A) 9 %; MCHC 33.4 g/dL (31.0-37.0); MCV 92.8 fL (80.0-100.0); Mean Platelet Volume 7.8; Monocytes # (A) 0.3 k/uL (0-1.0); Monocytes % (A) 3 %; Neutrophils # (A) 11.4 k/uL (1.3-7.7); Neutrophils % (A) 87 %; Platelet Count 187 k/uL (150-450); RBC 4.06 m/uL (3.80-5.40); RDW 12.7 % (11.5-15.5); WBC 13.1 k/uL (3.8-10.6)
[2023-05-31 23:52] LABS: Partial Thromboplastin Time 23.6 sec (22.0-30.0); Prothrombin Time 10.8 sec (10.0-12.5)
[2023-05-31 23:54] LABS: ALT 24 U/L (4-34); AST 22 U/L (14-36); African American GFR (CKD) 83 (>60 ml/min/1.73 sqM); Albumin 3.8 g/dL (3.5-5.0); Alkaline Phosphatase 119 U/L (38-126); Amylase 61 U/L (30-110); Anion Gap 11 mmol/L; Blood Urea Nitrogen 13 mg/dL (7-17); Calcium 9.5 mg/dL (8.4-10.2); Carbon Dioxide 20 mmol/L (22-30); Chloride 109 mmol/L (98-107); Glucose 282 mg/dL (74-99); Lipase 572 U/L (23-300); Non-African American GFR(CKD) 72 (>60 ml/min/1.73 sqM); Potassium 3.9 mmol/L (3.5-5.1); Sodium 140 mmol/L (137-145); Total Bilirubin 0.3 mg/dL (0.2-1.3); Total Protein 6.2 g/dL (6.3-8.2)
[2023-06-01] MEDS: SODIUM CHLORIDE 0.9% 500 ML 500 ML IV ONE ×3 (00:07→02:41)
[2023-06-01 00:21] VITALS: RESP 16
[2023-06-01 00:54] LABS: Appearance,Urine Cloudy (Clear); Bacteria,Urine Rare /hpf; Bilirubin,Urine Negative (Negative); Blood,Urine Moderate (Negative); Color,Urine Light Yellow; Glucose,Urine (UA) 1+ (Negative); Ketones,Urine Negative (Negative); Leukocyte Esterase,Urine Small (Negative); Mucus,Urine Rare /hpf; Nitrite,Urine Negative (Negative); PH, Urine 5.5 (5.0-8.0); Protein,Urine Trace (Negative); RBC,Urine 61 /hpf (0-5); Specific Gravity,Urine 1.017 (1.001-1.035); Squamous Epithelial Cell,Urine 1 /hpf (0-4); Urobilinogen,Urine <2.0 mg/dL (<2.0); WBC,Urine 8 /hpf (0-5)
[2023-06-01] MEDS: cefTRIAXone IN SWFI 1,000 MG/10 ML SYRINGE IVP STA (01:17)
[2023-06-01 07:02] VITALS: BP 162/99; PULSE 87; TEMP 98.7
== END 2023-06-01 06:33 | disposition home or self-care (01) ==
LOC: EC 21:52
DX: N39.0 Urinary tract infection, site not specified (principal); N23 Unspecified renal colic; I10 Essential (primary) hypertension; I25.2 Old myocardial infarction; M19.90 Unspecified osteoarthritis, unspecified site; F32.A Depression, unspecified; E11.9 Type 2 diabetes mellitus without complications; F17.200 Nicotine dependence, unspecified, uncomplicated; Z79.84 Long term (current) use of oral hypoglycemic drugs; Z79.82 Long term (current) use of aspirin; Z79.899 Other long term (current) drug therapy; Z90.49 Acquired absence of other specified parts of digestive tract; Z91.040 Latex allergy status; Z91.048 Other nonmedicinal substance allergy status; Z95.5 Presence of coronary angioplasty implant and graft
CPT/HCPCS: 36415 ×2; 80053; 82150; 83605 ×2; 83690; 85025; 85610; 85730; 81001; 74176; 99284; 96374; 96361 ×2; J0696

== ENCOUNTER → 2023-06-18 | Outpatient (CLI) | payer MEDICARE ==
--- NOTE | 2023-06-21 16:22 | US ---
EXAMINATION TYPE: US thyroid st tissue head/neck DATE OF EXAM: 06/18/2023 COMPARISON: NONE CLINICAL INDICATION: Female, 62 years old with history of Z12.31 ; f/u GLAND SIZE: Right Lobe: 5.2 x 1.8 x 1.3 cm Overall Parenchyma: heterogenous Left Lobe: 4.7 x 1.2 x 1.4 cm Overall Parenchyma: heterogenous Isthmus Thickness: 0.3 cm NODULES RIGHT: # of nodules measured on right: 0 LEFT: # of nodules measured on left: 2 1. 1.6 X 1.2 x 0.8 cm, lower , solid or almost completely solid, hyperechoic TR3 nodule, which is w ider than tall, with smooth margins, without echogenic foci. Prior size: 1.6 x 1.6 x 0.7 cm 2. 1.2 X 0.8 x 0.7 cm, upper solid or almost completely solid, hypoechoic TR 4 nodule, which is wi tony than tall, with smooth margins, without echogenic foci. Prior size: 1.0 x 0.8 x 0.6 cm ISTHMUS: # of nodules measured in the isthmus: 0 Bilateral neck scanned, no evidence of lymphadenopathy. IMPRESSION: A solid 1.6 cm TR3 nodule on the left and 1.2 cm TR4 nodule on the right. Stable on the left and mini luz increased on the right from 1.0 cm. 2017 ACR TI-RADS LEVEL: TR-RADS 3 - Mildly Suspicious: Follow if > 1.5 cm, FNA if > 2.5 cm 2017 ACR TI-RADS LEVEL: TR-RADS 4 - Moderately Suspicious: Follow if > 1 cm, FNA if > 1.5 cm
--- NOTE | 2023-06-22 09:43 | MM ---
Reason for Exam: Screening (asymptomatic). Last mammogram was performed 5 year(s) and 4 month(s) ago. Patient History: Menarche at age 11. First Full-Term at age 15. Left ovary removed at age 40. Right ovary removed at age 54. Hysterectomy at age 40. Postmenopausal. Hormonal Contraceptives for 5 years from age 15 until age 19. Risk Values: Ashley 5 year model risk: 1.2%. NCI Lifetime model risk: 4.7%. Prior Study Comparison: 08/14/2015 Bilateral Screening Mammogram, [facility]. 08/28/2016 Bilateral Screening Mammogram, [facility]. 03/02/2018 Bilateral Screening Mammogram, [facility]. Tissue Density: The breasts are almost entirely fatty. Findings: Analyzed By CAD. There is no suspicious group of microcalcifications or new suspicious mass. Overall Assessment: Negative, BI-RAD 1 Management: Screening Mammogram of both breasts in [address] [facility] will attempt to contact patient to return for supplemental views and ultrasound if indicated. Patient should continue monthly self-breast exams. A clinical breast exam by your physician is recommended on an annual basis. This exam should not preclude additional follow-up of suspicious palpable abnormalities. Note on Ashley scores and lifetime risk: 1. A Ashley score greater than 3% is considered moderate risk. If this is the case, consider specialist referral to assess eligibility for a risk reducing agent. 2. If overall lifetime risk for the development of breast cancer is 20% or higher, the patient may qualify for future screening with alternating mammogram and breast MRI. Electronically signed and approved by: Bolivar Arcos DO
== END | disposition home or self-care (01) ==
LOC: RADMAMWWP 14:46
PROVIDERS: ATTEND Family Medicine
DX: Z12.31 Encounter for screening mammogram for malignant neoplasm of breast (principal)
CPT/HCPCS: 76536; 77063; 77067